=== PATIENT | male | born 1980 | race Caucasian/White ===

== ENCOUNTER 2018-10-27 20:25 | Emergency (ER) | payer BC ==
[2018-10-27 20:55] VITALS: O2SAT 98
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
[2018-10-27 22:08] VITALS: BP 136/96; PULSE 104
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
== END 2018-10-27 22:13 | disposition home or self-care (01) ==
LOC: ED 20:25
DX: S00.33XA Contusion of nose, initial encounter (principal); R51 Headache; R11.0 Nausea; W22.8XXA Striking against or struck by other objects, initial encounter; Y93.89 Activity, other specified; Y92.85 Railroad track as the place of occurrence of the external cause; Y99.0 Civilian activity done for income or pay
CPT/HCPCS: 70450; 70486; 99283